=== PATIENT | female | born 1980 | race Caucasian/White ===

== ENCOUNTER → 2017-01-18 | Outpatient (CLI) | payer OTHER ==
--- NOTE | 2017-01-18 10:14 | Diagnostic Imaging Report ---
PROCEDURE: CT abdomen and pelvis without contrast. TECHNIQUE: Multiple contiguous axial images were obtained through the abdomen and pelvis without the use of intravenous contrast. INDICATION: Right lower quadrant pain. There are no previous CT examinations available for comparison. FINDINGS: The appendix was visualized and is not abnormally thickened. There is no distortion of periappendiceal fat to suggest acute appendicitis either. There is no evidence for nephrolithiasis or urolithiasis. However, the right renal pelvis and proximal right ureter do seem slightly dilated compared to the left. The possibility that the patient has recently passed a small calculus should be considered. Clinical followup is recommended. The urinary bladder itself is grossly unremarkable. The left kidney is within normal limits. There is no pelvic mass or free fluid collection noted. However, there is a 2.3 x 3.1 CM oval area of low density in the right adnexa. This may represent cyst arising from the right ovary. If further study is desired, then ultrasound would be recommended. The uterus is grossly unremarkable. The liver, spleen, pancreas, adrenals, gallbladder, aorta and inferior vena cava show no sign of acute abnormality. The stomach is not well-distended and consequently difficult to assess. The lung bases are clear. The bone windows show no sign of a fracture or for destructive lesion. IMPRESSION: 1. There is no evidence for acute appendicitis. 2. The slight prominence of the right renal pelvis and the right proximal ureter compared to left does raise the question of a recent passage of a small calculus from the right collecting system. Clinical followup is recommended. 2. The 2.3 x 3.1 CM oval area of low density in the right lower quadrant may be related to an ovarian cyst. If further study is desired, then ultrasound would be recommended. 3. There is no acute abnormality of the abdomen or pelvis noted otherwise. Dictated by: Dictated on workstation # [id number]
== END ==
LOC: RAD 09:39
DX: R10.31 Right lower quadrant pain (principal); R11.0 Nausea; R63.0 Anorexia
CPT/HCPCS: 74176

== ENCOUNTER → 2017-03-05 | Outpatient (CLI) | payer OTHER ==
[~2017-03-05] MED LIST: CATHETER FLUSH 10 ML SYR IV PRN
--- NOTE | 2017-03-05 11:13 | Diagnostic Imaging Report ---
EXAMINATION: HIDA with EF measurements Indication: Abdominal pain TECHNIQUE: After the intravenous administration of 5.5 mCi of Tc 99m Choletec, imaging over the abdomen was obtained. This was followed by administration of Ensure orally to stimulate intrinsic CCK secretion, followed by continued imaging with ejection fraction measured. FINDINGS: There is homogeneous uptake in the liver with prompt bile duct and gallbladder filling seen. Bowel activity is seen at 30 minutes. Based on further imaging and gallbladder area of interest activity measurements after the administration of Ensure, the gallbladder ejection fraction is estimated at 88%. IMPRESSION: 1. Normal hepatobiliary uptake and Gallbladder filling. 2. Normal gallbladder ejection fraction. Dictated by: Dictated on workstation # [id number]
== END ==
LOC: CARD 08:25
PROVIDERS: ATTEND Nurse Practitioner Family
DX: M54.6 Pain in thoracic spine (principal); R10.11 Right upper quadrant pain; R11.0 Nausea; R19.4 Change in bowel habit
CPT/HCPCS: 78227

== ENCOUNTER → 2017-03-12 | Outpatient (CLI) | payer OTHER ==
--- NOTE | 2017-03-12 19:32 | Diagnostic Imaging Report ---
PROCEDURE: US Gallbladder. TECHNIQUE: Multiple real-time grayscale images were obtained over the right upper quadrant in various projections. INDICATION: Right upper quadrant pain. FINDINGS: The visualized portions of the pancreas appear unremarkable. The liver is fairly homogeneous with no focal lesion seen. There is hepatopetal flow in the portal vein noted. The gallbladder demonstrates no stones or wall thickening. The CBD is 3 mm in caliber. The right kidney is 9.8 cm in length with no hydronephrosis or focal lesion. No fluid collection in the upper right abdomen seen. Sonographic Arita's sign is reportedly negative. IMPRESSION: Unremarkable exam. Dictated by: Dictated on workstation # [id number]
== END ==
LOC: RAD 09:57
PROVIDERS: ATTEND Surgery
DX: R10.11 Right upper quadrant pain (principal)
CPT/HCPCS: 76705

== ENCOUNTER 2019-02-02 08:57 | Outpatient (RCR) | payer OTHER ==
--- NOTE | 2019-02-02 09:20 | Diagnostic Imaging Report ---
CLINICAL INDICATION: Patient with cough and shortness of air for approximately 3 months. EXAM: Chest x-ray PA and lateral views. COMPARISONS: None. FINDINGS: Lungs/pleura: Lungs are clear. There is no pneumothorax. There is no pleural effusion. Mediastinum: Unremarkable. Pulmonary vasculature: Unremarkable. Heart: Unremarkable. Bones/extrathoracic soft tissue: Unremarkable. Impression: Unremarkable chest x-ray exam with no radiographic evidence of acute cardiopulmonary process. Results of this report discussed with TOÑA Givens via the telephone on 02/02/2019 at 0920 hrs. Dictated by: Dictated on workstation # [id number]
== END 2019-05-03 | disposition home or self-care (01) ==
LOC: RAD 08:57
PROVIDERS: ATTEND Nurse Practitioner Family
DX: R05 Cough (principal)
CPT/HCPCS: 71046; 87070; 87205

== ENCOUNTER 2019-06-04 21:08 | Emergency (ER) | payer OTHER ==
[~2019-06-04] VITALS: Ht 177 cm; Wt 65.0 kg
[2019-06-04] MEDS ORDERED: LACTATED RINGERS 1,000 ML IV ONE (21:58)
[2019-06-04 22:07] LABS: BASOPHILS % (AUTO) 0 % (0-10); EOSINOPHILS # (AUTO) 0.2 10^3/uL (0.0-0.3); EOSINOPHILS % (AUTO) 3 % (0-10); HEMATOCRIT 39 % (35-52); HEMOGLOBIN 13.2 G/DL (11.5-16.0); LYMPHOCYTES # (AUTO) 2.8 X 10^3 (1.0-4.0); LYMPHOCYTES % (AUTO) 36 % (12-44); MEAN CORPUSCULAR HEMOGLOBIN 30 PG (25-34); MEAN CORPUSCULAR HGB CONC 34 G/DL (32-36); MEAN CORPUSCULAR VOLUME 90 FL (80-99); MEAN PLATELET VOLUME 9.9 FL (7.4-10.4); MONOCYTES # (AUTO) 0.7 X 10^3 (0.0-1.0); MONOCYTES % (AUTO) 9 % (0-12); NEUTROPHILS # (AUTO) 4.1 X 10^3 (1.8-7.8); NEUTROPHILS % (AUTO) 52 % (42-75); PLATELET COUNT 249 10^3/uL (130-400); RED CELL DISTRIBUTION WIDTH 12.1 % (10.0-14.5); WHITE BLOOD COUNT 7.8 10^3/uL (4.3-11.0)
[2019-06-04 22:07] LABS: BILIRUBIN,URINE NEGATIVE (NEGATIVE); CLARITY,URINE CLEAR; COLOR,URINE YELLOW; GLUCOSE, URINE (UA) NEGATIVE (NEGATIVE); KETONES,URINE NEGATIVE (NEGATIVE); LEUKOCYTE ESTERASE ,URINE NEGATIVE (NEGATIVE); NITRITE,URINE NEGATIVE (NEGATIVE); PROTEIN,URINE NEGATIVE (NEGATIVE)
--- NOTE | 2019-06-04 22:09 | ED Abdominal Pain ---
General Chief Complaint: Abdominal/GI Problems Stated Complaint: BACK PAIN, ABD PAIN Nursing Triage Note: patient reports abdomen pain radiating to back worse after eating. Sepsis Screen: No Definite Risk Source of Information: Patient Exam Limitations: No Limitations History of Present Illness Date Seen by Provider: Jun 04, 2019 Time Seen by Provider: 21:50 Initial Comments Here with complaint of right-sided abdominal pain that radiates to the right back below the shoulder blade. No fever but does have diarrhea after each meal. She is able to drink fluids without difficulty. Seen a few days ago for the same at the urgent care and had labs drawn that were apparently okay. She is set up for ultrasound tomorrow due to concerns of about possible gallbladder. 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 She is on control. Last menstrual period was about 2 weeks ago. Things are worsening over the last few days. Timing/Duration: Getting Worse, Other (3-4 weeks) Severity/Quality: Moderate, Aching, Cramping Location: RUQ, RLQ Radiation: Back Activities at Onset: None Modifying Factors: Worsens With Lying down; Improves With Other (sitting up and curled up into a ball) Associated Symptoms: Back Pain; No Fever/Chills, No Nausea/Vomiting, No Shortness of Air, No Weakness Allergies and Home Medications Allergies Coded Allergies: No Known Drug Allergies (Unverified , 03/05/17) Home Medications Dicyclomine HCl 20 Mg Tablet, 20 MG PO ACHS Prescribed by: PRESTON LENTZ on 06/05/19 0128 Patient Home Medication List Home Medication List Reviewed: Yes Review of Systems Review of Systems Constitutional: see HPI; No chills, No fever EENTM: No Symptoms Reported Respiratory: No Symptoms Reported Cardiovascular: No Symptoms Reported Gastrointestinal: See HPI, Diarrhea; Denies Rectal Bleeding Genitourinary: No Symptoms Reported Musculoskeletal: see HPI Skin: no symptoms reported Psychiatric/Neurological: No Symptoms Reported All Other Systems Reviewed Negative Unless Noted: Yes Past Wbesqmm-Ebkinp-Ctoplf Hx Past Med/Social Hx: Reviewed Nursing Past Med/Soc Hx Patient Social History Alcohol Use: Denies Use Recreational Drug Use: No Smoking Status: Never a Smoker Recent Foreign Travel: No Contact w/Someone Who Travel: No Recent Infectious Disease Expo: No Past Medical History Surgeries: Yes (D&C, sinus) Adenoidectomy, Amputation, Section, Tonsillectomy Respiratory: No Cardiac: No Neurological: No Genitourinary: No Gastrointestinal: No Musculoskeletal: No Endocrine: No HEENT: No Cancer: No Psychosocial: No Integumentary: No Blood Disorders: No Family Medical History Reviewed Nursing Family Hx Physical Exam Vital Signs Vital Signs - First Documented 06/04/19 21:37 Temp 36.5 Pulse 71 Resp 18 B/P (MAP) 105/54 (71) Pulse Ox 98 Capillary Refill : Less Than 3 Seconds Height/Weight/BMI Height: '" Weight: lbs. oz. kg; 20.00 BMI Method: General Appearance: WD/WN, no apparent distress HEENT: PERRL/EOMI, pharynx normal Neck: full range of motion, supple Respiratory: lungs clear, normal breath sounds Cardiovascular: regular rate, rhythm, no murmur Gastrointestinal: soft; No guarding, No rebound; tenderness (right lower quadrant into a lesser extent right upper quadrant) Extremities: normal range of motion, normal inspection, no pedal edema Back: no vertebral tenderness, CVA tenderness (R); No CVA tenderness (L) Neurologic/Psychiatric: alert, oriented x 3 Skin: normal color, warm/dry Progress/Results/Core Measures Results/Orders Lab Results Laboratory Tests Test 06/04/19 21:55 06/04/19 22:00 Range/Units Urine Color YELLOW Urine Clarity CLEAR Urine pH 7.0 5-9 Urine Specific [place] <=1.005 1.016-1.022 Urine Protein NEGATIVE NEGATIVE Urine Glucose (UA) NEGATIVE NEGATIVE Urine Ketones NEGATIVE NEGATIVE Urine Nitrite NEGATIVE NEGATIVE Urine Bilirubin NEGATIVE NEGATIVE Urine Urobilinogen 0.2 < = 1.0 MG/DL Urine Leukocyte Esterase NEGATIVE NEGATIVE Urine RBC (Auto) NEGATIVE NEGATIVE Urine RBC NONE /HPF Urine WBC 0-2 /HPF Urine Squamous Epithelial Cells 5-10 /HPF Urine Crystals NONE /LPF Urine Bacteria MODERATE H /HPF Urine Casts NONE /LPF Urine Mucus NEGATIVE /LPF Urine Culture Indicated YES White Blood Count 7.8 4.3-11.0 10^3/uL Red Blood Count 4.34 L 4.35-5.85 10^6/uL Hemoglobin 13.2 11.5-16.0 G/DL Hematocrit 39 35-52 % Mean Corpuscular Volume 90 80-99 FL Mean Corpuscular Hemoglobin 30 25-34 PG Mean Corpuscular Hemoglobin Concent 34 32-36 G/DL Red Cell Distribution Width 12.1 10.0-14.5 % Platelet Count 249 130-400 10^3/uL Mean Platelet Volume 9.9 7.4-10.4 FL Neutrophils (%) (Auto) 52 42-75 % Lymphocytes (%) (Auto) 36 12-44 % Monocytes (%) (Auto) 9 0-12 % Eosinophils (%) (Auto) 3 0-10 % Basophils (%) (Auto) 0 0-10 % Neutrophils # (Auto) 4.1 1.8-7.8 X 10^3 Lymphocytes # (Auto) 2.8 1.0-4.0 X 10^3 Monocytes # (Auto) 0.7 0.0-1.0 X 10^3 Eosinophils # (Auto) 0.2 0.0-0.3 10^3/uL Basophils # (Auto) 0.0 0.0-0.1 10^3/uL Sodium Level 140 135-145 MMOL/L Potassium Level 3.7 3.6-5.0 MMOL/L Chloride Level 109 H 98-107 MMOL/L Carbon Dioxide Level 20 L 21-32 MMOL/L Anion Gap 11 5-14 MMOL/L Blood Urea Nitrogen 9 7-18 MG/DL Creatinine 0.95 0.60-1.30 MG/DL Estimat Glomerular Filtration Rate > 60 BUN/Creatinine Ratio 9 Glucose Level 89 70-105 MG/DL Calcium Level 9.0 8.5-10.1 MG/DL Corrected Calcium 8.7 8.5-10.1 MG/DL Total Bilirubin 0.4 0.1-1.0 MG/DL Aspartate Amino Transf (AST/SGOT) 14 5-34 U/L Alanine Aminotransferase (ALT/SGPT) 17 0-55 U/L Alkaline Phosphatase 62 40-136 U/L C-Reactive Protein High Sensitivity 0.12 0.00-0.50 MG/DL Total Protein 6.7 6.4-8.2 GM/DL Albumin 4.4 3.2-4.5 GM/DL Lipase 25 8-78 U/L My Orders Orders - PRESTON LENTZ MD Urine Bedside (06/04/19 21:58) Cbc With Automated Diff (06/04/19 21:58) Comprehensive Metabolic Panel (06/04/19 21:58) Hs C Reactive Protein (06/04/19 21:58) Lipase (06/04/19 21:58) Ua Culture If Indicated (06/04/19 21:58) Ed Iv/Invasive Line Start (06/04/19 21:58) Lactated Ringers (Lr 1000 Ml Iv Solution (06/04/19 21:58) Ct Abd/Pelv W (Appendicitis) (06/04/19 21:58) Urine Culture (06/04/19 21:55) Iohexol Injection (Omnipaque 350 Mg/Ml 1 (06/04/19 22:30) Ns (Ivpb) (Sodium Chloride 0.9% Ivpb Bag (06/04/19 22:30) Hyoscyamine Sl Tablet (Levsin Sl Tablet) (06/04/19 23:15) Ketorolac Injection (Toradol Injection) (06/04/19 23:15) Medications Given in ED Current Medications Medications Dose Ordered Sig/Yolis Route Start Time Stop Time Status Last Admin Dose Admin Hyoscyamine Sulfate 0.125 mg ONCE ONCE SL 06/04/19 23:15 06/04/19 23:17 DC 06/04/19 23:22 0.125 MG Iohexol 100 ml ONCE ONCE IV 06/04/19 22:30 06/04/19 23:37 DC 06/04/19 22:25 100 ML Lactated Ringer's 1,000 ml @ 0 mls/hr Q0M ONCE IV 06/04/19 21:58 06/04/19 22:00 DC 06/04/19 22:32 0 MLS/HR Sodium Chloride 80 ml ONCE ONCE IV 06/04/19 22:30 06/04/19 23:37 DC 06/04/19 22:25 80 ML Vital Signs/I&O 06/04/19 21:37 Temp 36.5 Pulse 71 Resp 18 B/P (MAP) 105/54 (71) Pulse Ox 98 Blood Pressure Mean: 71 Progress Progress Note : Progress Note Seen and evaluated. IV, labs, UA and UCG ordered. LR [address] abdomen and pelvis with contrast ordered. Monitor patient. 2343: I did order Toradol 30 mg IV as well as Levsin 0.125 mg by mouth for pain. I have called the radiologist regarding the read. There is questions about a possible kidney stone and I have asked him to really look at that. He is asked for reformats on the delayed serious to evaluate that further and I have discussed this with our technologist who will send those images to him. Noted on that discussion that there was ovarian cyst that was not previously mentioned. This may be part of the pain as well. Monitor patient. 0115: I have rediscussed the case with [facility] and they are working on rifaximin the addendum. Verbal addendum does note the ovarian cyst but the concern for stone seems to be phlebolith and is not within the ureter as noted on reformats of the delayed images. All of this was discussed with the patient and family. At this point, I think further evaluation of gallbladder with ultrasound tomorrow that she has set up is reasonable and she does need to follow-up with a surgeon for further evaluation including more workup on the gallbladder and possible colonoscopy. In the meantime, we will initiate dicyclomine with meals and she will increase her probiotic. She does report that she had initial onset of diarrheal illness several weeks ago and she's had the problem since so this may be sequela of that. Discharged home with return precautions. Patient verbalize understanding of instructions and agreement with plan. Diagnostic Imaging Diagonstic Imaging: CT Plain Films/CT/US/NM/MRI: abdomen, pelvis Comments Initial read noted no acute findings in the abdomen and pelvis but addendum notes: additional coronal and sagittal reformatted images are obtained from the delayed imaging exam with contrast and the distal ureters. The more anterior of the 2 calcifications in the right pelvis appears to be beside the ureter and not within the ureter. This is best seen on the sagittal reformatted series 3 images 62 and 63. I have low index of suspicion of distal ureteral stone. There is a p artially collapsed or involuting follicle or cyst in the right ovary measuring 2.5 cm x 1.8 cm. Reviewed: Discussed w/Radiologist Departure Impression Primary Impression: Right ovarian cyst Additional Impressions: Diarrhea Qualified Codes: R19.7 - Diarrhea, unspecified Right sided abdominal pain Disposition: HOME, SELF-CARE Condition: Improved Departure-Patient Inst. Decision time for Depature: 01:22 Referrals: KEVIN SHOEMAKER MD (PCP/Family) Primary Care Physician ANNABELLE LAMAR DO Patient Instructions: Acute Abdomen (Belly Pain), Adult (DC), Diarrhea in Adolescents and Adults, Irritable Bowel Syndrome (DC), Ovarian Cyst (DC) Add. Discharge Instructions: All discharge instructions reviewed with patient and/or family. Voiced und erstanding. You may increase the probiotics to 3 times daily per package directions. Drink plenty of fluids. Clear liquid or light diet for the next few days and then advance as tolerated. Take medications as directed. You should follow-up with the surgeon listed or of her choosing for recheck and further evaluation. Go ahead and get the ultrasound as scheduled. Return for worse pain, fever, vomiting, weakness, breathing problems or other concerns as needed. Scripts Dicyclomine HCl (Dicyclomine HCl) 20 Mg Tablet 20 MG PO ACHS, #45 TAB 0 Refills Prov: PRESTON LENTZ MD 06/05/19 Copy Copies To 1: KEVIN SHOEMAKER MD Copies To 2: ANNABELLE LAMAR TIMOTHY D MD Jun 04, 2019 22:09
[2019-06-04 22:13] LABS: BACTERIA,URINE MODERATE /HPF; WBC,URINE 0-2 /HPF
[2019-06-04 22:30] LABS: ALANINE AMINOTRANSFERASE 17 U/L (0-55); ALBUMIN 4.4 GM/DL (3.2-4.5); ALKALINE PHOSPHATASE 62 U/L (40-136); BILIRUBIN,TOTAL 0.4 MG/DL (0.1-1.0); BUN/CREATININE RATIO 9; CARBON DIOXIDE 20 MMOL/L (21-32); CHLORIDE 109 MMOL/L (98-107); CREATININE SERUM 0.95 MG/DL (0.60-1.30); GFR ESTIMATED > 60; GLUCOSE 89 MG/DL (70-105); LIPASE 25 U/L (8-78); POTASSIUM 3.7 MMOL/L (3.6-5.0); SODIUM 140 MMOL/L (135-145); TOTAL PROTEIN 6.7 GM/DL (6.4-8.2)
[2019-06-04] MEDS ORDERED: IOHEXOL 350 MG/ML 100 ML (OMNIPAQUE 350) VIAL IV ONE (22:30)
[2019-06-04] MEDS ORDERED: NS 100 ML (IVPB) BAG IV ONE (22:30)
[2019-06-04] MEDS ORDERED: KETOROLAC 30 MG/ML VIAL IVP STA (23:15)
[2019-06-04] MEDS ORDERED: HYOSCYAMINE 0.125 MG (LEVSIN) TAB SL ONE (23:15)
[2019-06-05] MEDS ORDERED: DICY20TA10 PO (01:28)
[2019-06-05 01:50] VITALS: BP 105/54
--- NOTE | 2019-06-07 16:52 | Diagnostic Imaging Report ---
PROCEDURE: CT abdomen and pelvis with contrast, rule out appendicitis. TECHNIQUE: Multiple contiguous axial images were obtained through the abdomen and pelvis after the administration of intravenous contrast. INDICATION: Back and abdominal pain. CORRELATION STUDY: None. FINDINGS: LOWER THORAX: Clear. LIVER: Unremarkable. GALLBLADDER: Present and unremarkable. No bile duct dilatation. SPLEEN: Unremarkable. PANCREAS: Unremarkable. ADRENAL GLANDS: Unremarkable. KIDNEYS: Normal configuration. No calcification or obstruction. Calcifications in the pelvis appear to be just adjacent to the distal ureter. A definitive intraluminal positioning does not appear to be suggested. There is no significant obstruction. ABDOMINAL AORTA: Unremarkable, nonaneurysmal. GASTROINTESTINAL TRACT: No obstruction or inflammation. Normal appendix. URINARY BLADDER: Unremarkable. REPRODUCTIVE: Partially collapsed or involuting cyst is noted at the right ovary at approximately 2.5 x 2.0 cm. OSSEOUS STRUCTURES: No acute abnormality. OTHER: None. IMPRESSION: 1. Negative for acute abnormality of the abdomen or pelvis. A preliminary report was provided by [employer]. It is noted that the examination has been submitted on 06/07/2019 for dictation purposes. Dictated by: Dictated on workstation # [id number]
== END 2019-06-05 01:52 | disposition home or self-care (01) ==
LOC: EDUNIT# 21:08 → ER 21:09
DX: N83.201 Unspecified ovarian cyst, right side (principal); R19.7 Diarrhea, unspecified; R10.11 Right upper quadrant pain; R10.31 Right lower quadrant pain; Z90.89 Acquired absence of other organs
CPT/HCPCS: 36415; 74177; 80053; 81000; 83690; 84703; 85025; 86141; 87088; 96361; 96374

== ENCOUNTER → 2019-06-05 | Outpatient (CLI) | payer OTHER ==
[~2019-06-05] MED LIST changes: -CATHETER FLUSH 10 ML SYR IV PRN; +DICY20TA10 PO; +NF-ESOM40C PO; +NORG1TAB33 PO; +SIME62.5 PO
--- NOTE | 2019-06-05 16:13 | Diagnostic Imaging Report ---
PROCEDURE: US Gallbladder. TECHNIQUE: Multiple real-time grayscale images were obtained over the right upper quadrant in various projections. INDICATION: Abdominal pain and back pain. FINDINGS: The liver is normal in size at 14.3 cm. The portal vein is patent and shows normal direction of flow. No discrete liver mass is detected. Gallbladder is without stones or sludge. No wall thickening or biliary ductal dilatation is seen. Visualized pancreas is unremarkable. IVC is patent. Right kidney is without calculi or hydronephrosis. IMPRESSION: No evidence of cholelithiasis or acute cholecystitis. Dictated by: Dictated on workstation # [id number]
== END ==
LOC: RAD 13:58
PROVIDERS: ATTEND Nurse Practitioner Family
DX: K59.09 Other constipation (principal); E28.2 Polycystic ovarian syndrome; Z87.42 Personal history of other diseases of the female genital tract
CPT/HCPCS: 76705

== ENCOUNTER 2019-06-08 05:36 | Outpatient (CLI) | payer OTHER ==
[~2019-06-08] VITALS: Ht 177 cm; Wt 65.9 kg
[~2019-06-08 05:36] MED LIST changes: -NF-ESOM40C PO; -NORG1TAB33 PO; -SIME62.5 PO
[2019-06-08] MEDS ORDERED: SIME62.5 PO (15:48)
[2019-06-08] MEDS ORDERED: NF-ESOM40C PO (15:48)
[2019-06-08] MEDS ORDERED: NORG1TAB33 PO (15:48)
== END 2019-06-08 15:51 | disposition home or self-care (01) ==
LOC: PREOP 05:36
PROVIDERS: ATTEND Surgery
DX: Z01.818 Encounter for other preprocedural examination (principal)

== ENCOUNTER → 2019-06-13 | Outpatient (CLI) | payer OTHER ==
[~2019-06-13] MED LIST changes: +CATHETER FLUSH 10 ML SYR IV PRN; +NF-ESOM40C PO; +NORG1TAB33 PO; +SIME62.5 PO
--- NOTE | 2019-06-13 13:40 | Diagnostic Imaging Report ---
INDICATION: Vomiting and diarrhea. TECHNIQUE: Patient was administered 5.3 mCi technetium 99m Choletec intravenously and imaging over the abdomen was performed. At one hour, patient ingested 8 ounces of Ensure and a gallbladder ejection fraction was calculated. Patient denied discomfort during the study. FINDINGS: Homogeneous uptake of activity by the liver is seen with prompt excretion of activity into the common duct and gallbladder. Normal passage of activity into the small bowel is noted. Gallbladder ejection fraction is normal at 36%. Normal values are 35% or greater. IMPRESSION: Normal HIDA scan and gallbladder ejection fraction. Dictated by: Dictated on workstation # [id number]
== END ==
LOC: CARD 11:08
PROVIDERS: ATTEND Surgery
DX: R11.2 Nausea with vomiting, unspecified (principal); R19.7 Diarrhea, unspecified
CPT/HCPCS: 78227

== ENCOUNTER 2019-06-22 05:37 | Outpatient (CLI) | payer OTHER ==
[~2019-06-22] VITALS: Ht 177 cm; Wt 65.9 kg
[~2019-06-22 05:37] MED LIST changes: -CATHETER FLUSH 10 ML SYR IV PRN
[2019-06-22] MEDS ORDERED: SUCR1TAB36 PO (12:30)
[2019-06-23] MEDS ORDERED: ACHD5005 PO (12:58)
== END 2019-06-22 12:38 | disposition home or self-care (01) ==
LOC: PREOP 05:37
PROVIDERS: ATTEND Surgery
DX: Z01.818 Encounter for other preprocedural examination (principal)

== ENCOUNTER → 2020-07-30 | Outpatient (CLI) | payer OTHER ==
[~2020-07-30] MED LIST changes: +ACHD5005 PO; +CATHETER FLUSH 10 ML SYR IV PRN; +HOLD METFORMIN - RECEIVED CONTRAST 20 ML VIAL IV SCH; +IOHEXOL 350 MG/ML 100 ML (OMNIPAQUE 350) VIAL IV ONE; +NS 100 ML (IVPB) BAG IV ONE; +SUCR1TAB36 PO
[2020-07-30 14:30] LABS: HEMOGLOBIN 13.1 g/dL (11.5-16.0); MEAN PLATELET VOLUME 9.5 fL (9.0-12.2)
[2020-07-30 15:04] LABS: ALANINE AMINOTRANSFERASE 19 U/L (0-55); ALBUMIN 4.1 GM/DL (3.2-4.5); ALKALINE PHOSPHATASE 58 U/L (40-136); BILIRUBIN,TOTAL 0.7 MG/DL (0.1-1.0); BUN/CREATININE RATIO 13; CALCIUM 8.9 MG/DL (8.5-10.1); CARBON DIOXIDE 27 MMOL/L (21-32); CHLORIDE 106 MMOL/L (98-107); GFR ESTIMATED > 60; GLUCOSE 113 MG/DL (70-105); POTASSIUM 3.4 MMOL/L (3.6-5.0); SODIUM 140 MMOL/L (135-145); TOTAL PROTEIN 6.4 GM/DL (6.4-8.2)
--- NOTE | 2020-07-30 15:56 | Diagnostic Imaging Report ---
PROCEDURE: CT abdomen and pelvis with contrast. TECHNIQUE: Multiple contiguous axial images were obtained through the abdomen and pelvis after administration of intravenous contrast. Auto Exposure Controls were utilized during the CT exam to meet ALARA standards for radiation dose reduction. All CT scans use one or more of the following dose optimizing techniques: automated exposure control, MA and/or KvP adjustment based on patient size and exam type or iterative reconstruction. INDICATION: Right lower quadrant pain. FINDINGS: The previous CT abdomen/pelvis exam of 06/04/2019 failed to show any sign of an acute abnormality of the abdomen or pelvis. On this exam, the appendix was visualized. The appendix is partially filled with air and not abnormally thickened. There is no evidence for acute appendicitis at this time. There is no pelvic mass identified but in the interval, since the prior exam, a gdfuu-sp-qphiuxxd amount of free fluid has developed. This finding is nonspecific but could be related to the recent rupture of an ovarian cyst or to an inflammatory/infectious process. There is no mass or abscess visualized. The uterus and urinary bladder are grossly unremarkable. There is a fair amount of fecal material throughout the colon. The stomach is also partially distended by particulate matter. The liver, spleen, pancreas, adrenals, kidneys, aorta, inferior vena cava, and portal vein show no sign of an acute abnormality. In the interval, since the prior study, the patient has undergone a cholecystectomy. The stomach is not well distended and consequently difficult to evaluate. The lung bases are clear. The bone windows show no sign of a fracture or of a destructive lesion. IMPRESSION: 1. In the interval, since the prior exam, a jyidh-wz-vdnvvuij amount of free fluid has developed in the pelvis. This is nonspecific but could be related to the recent rupture of an ovarian cyst or perhaps to an inflammatory/infectious process. There is no mass or abscess identified. 2. If further evaluation of the pelvic contents is desired, then ultrasound would be recommended. 3. There is no acute abnormality of the abdomen or pelvis noted, otherwise. 4. There has been an interval cholecystectomy. Dictated by: Dictated on workstation # [id number]
== END ==
LOC: RAD 14:14
PROVIDERS: ATTEND Nurse Practitioner Family
DX: R10.31 Right lower quadrant pain (principal); Z90.49 Acquired absence of other specified parts of digestive tract
CPT/HCPCS: 36415; 74177; 80053; 85027

== ENCOUNTER 2020-10-03 05:31 | Outpatient (RCR) | payer OTHER ==
[~2020-10-03] VITALS: Ht 177.8 cm; Wt 68.3 kg
[~2020-10-03 05:31] MED LIST changes: -CATHETER FLUSH 10 ML SYR IV PRN; -HOLD METFORMIN - RECEIVED CONTRAST 20 ML VIAL IV SCH; -IOHEXOL 350 MG/ML 100 ML (OMNIPAQUE 350) VIAL IV ONE; +LACT1CAP64 PO; -NS 100 ML (IVPB) BAG IV ONE
== END 2020-10-03 09:05 | disposition home or self-care (01) ==
LOC: PREOP 05:31
PROVIDERS: ATTEND Surgery
DX: Z01.812 Encounter for preprocedural laboratory examination (principal); Z20.822 Contact with and (suspected) exposure to COVID-19
CPT/HCPCS: 87635

== ENCOUNTER → 2020-10-07 | Day surgery (SDC) | payer OTHER ==
[~2020-10-07] VITALS: Ht 177.8 cm; Wt 68.3 kg
[~2020-10-07] MED LIST changes: +HURRICAINE EXT TUBE (BENZOCAINE) XX PRN; +LACTATED RINGERS 1,000 ML IV ONE; +LACTATED RINGERS 1,000 ML IV STA; +MIDAZOLAM 2 MG/2 ML (VERSED) VIAL ONE; +proPOfol 200 MG/20 ML (DIPRIVAN) VIAL IV ONE
[2020-10-07 07:15] VITALS: BP 95/67
--- NOTE | 2020-10-07 08:29 | Progress Note-Pre Operative ---
Pre-Operative Progress Note H&P Reviewed The H&P was reviewed, patient examined and no changes noted. Time Seen by Provider: 08:17 Date H&P Reviewed: October 07, 2020 Time H&P Reviewed: 08:17 Pre-Operative Diagnosis: Hx of ANNABELLE Del Castillo DO October 07, 2020 08:29
--- NOTE | 2020-10-07 08:55 | Progress Note-Post Operative ---
Post-Operative Progess Note Surgeon (s)/Currency Exchange Specialist (s) Surgeon ANNABELLE LAMAR DO Currency Exchange Specialist: none Pre-Operative Diagnosis Hx of Barretts Post-Operative Diagnosis Gastritis Sliding Hiatal Hernia Procedure & Operative Findings Date of Procedure 10/07/20 Procedure Performed/Findings EGD with bx Anesthesia Type IV sedation by HOME IMPROVEMENT ADVISOR Estimated Blood Loss Estimated blood loss (mL): scant Specimens/Packing Specimens Removed antral bx body of stomach bx GE jxn bx ANNABELLE LAMAR DO October 07, 2020 08:55
--- NOTE | 2020-10-07 08:55 | Endoscopy Discharge Instruct ---
Endo Procedure/Findings Findings 1.: Gastritis 2.: Hiatal Hernia Discharge Instructions - Activity: You might feel a little sleepy until tomorrow. This is due to the medicine you received to relax you. Until tomorrow, you should: NOT drive a car, operate machinery or power tools. NOT drink any alcoholic beverages. NOT make any important decisions or sign importortant papers. Do not return to work until tomorrow, unless otherwise instructed. Resume previous activities tomorrow. Diet: Start by taking liquids. If you tolerate liquids, advance to solid food. 1.: EGD in 3 years Notify Physician - If you experience excessive bleeding, unusual abdominal pain, fever, or chest pain, contact your doctor immediately. ANNABELLE LAMAR DO October 07, 2020 08:55
[2020-10-07 09:00] VITALS: BP 89/55
[2020-10-07 09:05] VITALS: BP 103/59
[2020-10-07 09:40] VITALS: BP 86/58
[2020-10-07 10:00] VITALS: BP 86/58
--- NOTE | 2020-10-07 10:58 | Anesthesia-General Post-Op ---
MAC Patient Condition Mental Status/LOC: Same as Preop Cardiovascular: Satisfactory Nausea/Vomiting: Absent Respiratory: Satisfactory Pain: Controlled Complications: Absent Post Op Complications Complications None Follow Up Care/Instructions Patient Instructions None needed. Anesthesiology Discharge Order Discharge Order Patient is doing well, no complaints, stable vital signs, no apparent adverse anesthesia problems. No complications reported per nursing. HAI ROACH CRNA October 07, 2020 10:58
--- NOTE | 2020-10-07 19:54 | OPERATIVE REPORT ---
DATE OF SERVICE: 10/07/2020 PREOPERATIVE DIAGNOSIS: History of Castorena's. POSTOPERATIVE DIAGNOSES: Gastritis, small sliding hiatal hernia. PROCEDURE: EGD with biopsy. SURGEON: Warren Souza DO DIGITAL PUBLISHING SPECIALIST: None. ANESTHESIA: IV sedation by the LINOTYPE OPERATOR. SPECIMEN: Biopsy of the antrum, biopsy of body of stomach, biopsy of the GE junction. BLOOD LOSS: Scant. FLUIDS: Per anesthesia. POSTOPERATIVE CONDITION: Stable. INDICATION FOR PROCEDURE: The patient is a 40-year-old female with a history of Castorena's esophagus and needed a workup. FINDINGS: The patient had some mild gastritis and a small sliding hiatal hernia. Nothing else seen. PROCEDURE NOTE: After informed consent was obtained, the patient was brought to the endoscopy suite, placed in bed in left lateral decubitus position. She was administered IV sedation by the LINOTYPE OPERATOR who then monitored her vitals the entire time, heart rate, blood pressure and pulse ox and the scope was inserted down the mouth through the esophagus into the stomach, pushed into the stomach and towards the antrum, saw some mild gastritis, took a picture, pushed into the duodenum. Duodenum looked fine. Pulled back and did a biopsy of the antrum. Retroflexed the scope. When the scope moved in and out, so that the GE junction, looked like a small sliding hiatal hernia, but no space between the scope, pulled the scope, did a biopsy of body of stomach and then pulled the scope into the GE junction, did a biopsy. At this point, then pushed the scope back into the stomach, suctioned all the air out of the stomach and then pulled the scope up the esophagus and out the mouth. The patient tolerated the procedure, recovered in endoscopy suite. Job ID: [id number] DocumentID: [id number] Dictated Date: 10/07/2020 14:48:41 Continuous Improvement Specialist Date: 10/07/2020 19:53:09 Dictated By: WARREN SOUZA DO
== END ==
LOC: ENDO 06:52
PROVIDERS: ATTEND Surgery
DX: K44.9 Diaphragmatic hernia without obstruction or gangrene (principal); K21.00 Gastro-esophageal reflux disease with esophagitis, without bleeding; K29.70 Gastritis, unspecified, without bleeding; G43.909 Migraine, unspecified, not intractable, without status migrainosus; Z79.899 Other long term (current) drug therapy; Z87.19 Personal history of other diseases of the digestive system
CPT/HCPCS: 84703; 88305

== ENCOUNTER → 2020-12-19 | Outpatient (CLI) | payer OTHER ==
[~2020-12-19] MED LIST changes: -HURRICAINE EXT TUBE (BENZOCAINE) XX PRN; -LACTATED RINGERS 1,000 ML IV ONE; -LACTATED RINGERS 1,000 ML IV STA; -MIDAZOLAM 2 MG/2 ML (VERSED) VIAL ONE; -proPOfol 200 MG/20 ML (DIPRIVAN) VIAL IV ONE
== END ==
LOC: RAD 09:33
DX: Z53.9 Procedure and treatment not carried out, unspecified reason (principal)

== ENCOUNTER → 2020-12-23 | Outpatient (CLI) | payer OTHER ==
--- NOTE | 2020-12-23 14:01 | Diagnostic Imaging Report ---
PROCEDURE: US Non-OB pelvis comp/trans. TECHNIQUE: Multiple real-time grayscale images were obtained of the pelvis in various projections endovaginally. Transabdominal imaging was also performed. INDICATION: Right-sided pelvic pain. FINDINGS: The uterus appeared normal. No fibroid or myometrial mass. The endometrium is normal at 4 mm thickness. There is no evidence for adnexal torsion. There are some follicular cysts in the ovaries, which do not appear pathologic. The largest are 1.6 cm. IMPRESSION: Unremarkable pelvic ultrasound. No evidence for torsion, fibroid, free fluid, or acute abnormalities. Dictated by: Dictated on workstation # [id number]
== END ==
LOC: RAD 13:00
PROVIDERS: ATTEND Nurse Practitioner Family
DX: R10.2 Pelvic and perineal pain (principal)
CPT/HCPCS: 76830; 76856